=== PATIENT | female | born 1990 | race Caucasian/White ===

== ENCOUNTER 2016-09-24 19:47 | Emergency (ER) | payer OTHER ==
--- NOTE | ~2016-09-24 | CR72 ---
[facility] A Service of [facility] & [facility] RADIOLOGY TEXT RESULTS PATIENT: JT MULLIGAN LOCATION: [facility] : [birth year] UNIT #: [id number] AGE: [address]: Margaret Harrington MD SEX: F ORDER DR: [id number] [facility] [address] [facility]. [place], [place] [address] [id number] MR#: [id number] Acc #: [id number] NAME: JT MULLIGAN : 1990 SEX: F STUDY DATE/TIME: 09/24/2016 20:52 UNIT: [facility] ROOM: STUDY DESCRIPTION: CR Chest Single View Portable Attending Physician: Margaret Harrington M.D. Ordering Physician: Margaret Harrington M.D. MEDICAL IMAGING REPORT This report is preliminary unless electronic signature is present EXAM Portable chest HISTORY Chest pain, shortness of air today. FINDINGS The cardiac size and pulmonary vascularity are normal. No infiltrates or effusions. IMPRESSION Negative. Dictated by... Chato Ratliff M.D. THIS IS AN ELECTRONICALLY VERIFIED REPORT Chato Ratliff M.D. at 09/25/2016 11:25 PM DFL/pcl TD: 09/24/2016 23:23 JOB #: [id number] MEDICAL IMAGING REPORT Page 1 of 1 COPY
--- NOTE | ~2016-09-24 | EKG ---
PATIENT: JT MULLIGAN UNIT #: [id number] Ventricular Rate: 91 BPM Atrial Rate: 91 BPM P-R Interval: 156 ms QRS Duration: 80 ms Q-T Interval: 326 ms QTC Calculation(Bezet): 400 ms P [place]: 56 degrees Calculated R [place]: 14 degrees Calculated T [place]: 24 degrees Diagnosis Line: Normal sinus rhythm Diagnosis Line: Normal ECG Diagnosis Line: No previous ECGs available Diagnosis Line: Confirmed by MARISOL PELLETIER MD ([id number]) on Diagnosis Line: 09/25/2016 8:02:26 AM INTERPRETING MD: PRABHU PURDY
[~2016-09-24 19:47] MED LIST: AMOXICILLIN125 MG PO; CIPRO PO; IBUPROFEN PO; IRON PILL; MOTRIN20 MG/ML PO; PERCOCET5/325 PO; PRENATAL1 TA1; PYRIDIUM PO
[2016-09-24 20:59] LABS: URINE SOURCE CLEAN CATCH
[2016-09-24 21:04] LABS: BASOPHIL% 0.5 % (0-2.5); EOSINOPHIL# 0.2 X10e3 (0-0.7); EOSINOPHIL% 1.5 % (0.0-7.0); HEMATOCRIT 41.1 % (35.0-45.0); LYMPHOCYTE% 28.5 % (17.0-45.0); MEAN CORPUSCULAR HEMOGLOBIN 23.4 PG (28-34); MEAN CORPUSCULAR HGB CONC 31.7 g/dL (30-36); MEAN PLATELET VOLUME 8.2 FL (6.5-11.5); MONOCYTE# 0.7 X10e3 (0-1.0); MONOCYTE% 7.1 % (3.0-12.0); NEUTROPHIL# 6.5 X10e3 (1.5-7.1); NEUTROPHIL% 62.4 % (40-75); PLATELET COUNT 258 X10e3 (140-420); RED BLOOD COUNT 5.55 X10e (3.90-5.30); RED CELL DISTRIBUTION WIDTH 17.1 % (11.0-15.5); WHITE BLOOD COUNT 10.4 X10e3 (4.0-10.5)
[2016-09-24 21:05] LABS: DIFF IND NO
[2016-09-24 21:07] LABS: URINE APPEARANCE CLEAR; URINE BILIRUBIN NEG (NEG); URINE BLOOD NEG (NEG); URINE COLOR YELLOW; URINE GLUCOSE NEG (NEG); URINE KETONE NEG (NEG); URINE LEUKOCYTE ESTERASE NEG (NEG); URINE NITRATE NEG (NEG); URINE PH 5.5 (5-8); URINE PROTEIN NEG (NEG); URINE SPECIFIC GRAVITY 1.028 (1.003-1.035); URINE UROBILINOGEN 0.2 MG/DL (NEG)
[2016-09-24 21:12] LABS: CULTURE INDICATED? NO
[2016-09-24 21:25] LABS: BILIRUBIN,TOTAL 0.3 mg/dL (0.2-2.0); BUN/CREATININE RATIO 18.57; CALCIUM SERUM 9.2 mg/dL (8.4-10.2); CREATININE SERUM 0.7 mg/dL (0.6-1.4); GLOM FILT RATE Estimated 119.6 mL/min (>60); POTASSIUM 4.1 mmol/L (3.5-5.1); PROTEIN TOTAL SERUM 7.6 g/dL (6.0-8.3)
[2016-09-24 21:35] LABS: BILIRUBIN, DIRECT 0.1 mg/dL (0.0-0.2); BILIRUBIN,INDIRECT 0.2 mg/dL (0.0-0.9)
[2016-09-24 22:08] LABS: POC - CKMB <1.0 ng/mL (0.0-7.9); POC - TROPONIN <0.05 ng/mL (<=0.05)
== END 2016-09-24 22:20 | disposition home or self-care (01) ==
LOC: CED 19:47
PROVIDERS: Emergency Medicine; Student in an Organized Health Care Education/Training Program
DX: R07.89 Other chest pain (principal)
CPT/HCPCS: 36415; 71010; 80048; 80076; 81003; 82553; 83690; 84484; 84703; 85025; 93005; 96372; 99285; J1885